=== PATIENT | female | born 1955 | race Caucasian/White ===

== ENCOUNTER 2021-04-02 22:41 | Emergency (ER) | payer OTHER ==
[2021-04-02 23:29] LABS: HEMOGLOBIN 11.2 gm/dl (12.3-15.3); RED BLOOD COUNT 3.53 M/UL (4.00-5.10); WHITE BLOOD COUNT 7.7 K/UL (4.5-11.0)
[2021-04-03 00:03] LABS: BUN/CREATININE RATIO 16 (0-10)
== END 2021-04-03 09:50 ==
LOC: ER1 22:41
PROVIDERS: Student in an Organized Health Care Education/Training Program
DX: U07.1 COVID-19 (principal); R41.0 Disorientation, unspecified; R09.02 Hypoxemia; I10 Essential (primary) hypertension; E11.9 Type 2 diabetes mellitus without complications; F17.210 Nicotine dependence, cigarettes, uncomplicated
CPT/HCPCS: 0240U; 36600; 51702; 70450; 70496; 70498; 71045; 80053; 80307; 82550; 82553; 82803; 83605; 83690; 83735; 83874; 83880; 84100; 84484; 85025; 86140; 87040; 93005; 94760; 96374; 96375; 96376; 99285; G0480; J0456; J3370; J3475; J3480; J7030; J7070; Q9967

== ENCOUNTER 2021-07-21 16:17 | Inpatient (IN) | payer OTHER ==
[~2021-07-21] VITALS: Ht 162.6 cm; Wt 53.5 kg
[2021-07-21 17:15] LABS: HEMOGLOBIN 10.4 gm/dl (12.3-15.3); RED BLOOD COUNT 3.24 M/UL (4.00-5.10); WHITE BLOOD COUNT 8.5 K/UL (4.5-11.0)
[2021-07-21 17:41] LABS: BUN/CREATININE RATIO 46 (0-10)
[2021-07-22 04:11] LABS: HEMOGLOBIN 10.9 gm/dl (12.3-15.3); RED BLOOD COUNT 3.39 M/UL (4.00-5.10)
[2021-07-22 04:22] LABS: WHITE BLOOD COUNT 11.8 K/UL (4.5-11.0)
[2021-07-22 04:38] LABS: BUN/CREATININE RATIO 34 (0-10)
[2021-07-22] MEDS ORDERED: PREGABALIN150 MG PO (10:04)
[2021-07-22] MEDS ORDERED: ACETAMINOPHEN-1 EAC1 PO (10:04)
[2021-07-22] MEDS ORDERED: TIAGABINE HCL2 MG PO (10:07)
[2021-07-22] MEDS ORDERED: SERTRALINE HCL100 MG PO (10:08)
[2021-07-22] MEDS ORDERED: BUPROPION XL150 MG PO (10:08)
[2021-07-22] MEDS ORDERED: ASPIRIN EC81 MG PO (10:09)
[2021-07-22] MEDS ORDERED: QUETIAPINE FUMA25 MG PO (10:11)
[2021-07-23 06:58] LABS: HEMOGLOBIN 10.2 gm/dl (12.3-15.3); RED BLOOD COUNT 3.33 M/UL (4.00-5.10)
[2021-07-23 07:01] LABS: WHITE BLOOD COUNT 15.7 K/UL (4.5-11.0)
[2021-07-23 07:15] LABS: BUN/CREATININE RATIO 15 (0-10)
[2021-07-23] MEDS ORDERED: LEVOFLOXACIN500 MG PO (15:53)
[2021-07-23] MEDS ORDERED: FLAGYL500 MG PO (15:53)
== END 2021-07-23 17:05 | disposition home or self-care (01) | DRG 871 ==
LOC: ER1 16:17 → CDU 17:54
PROVIDERS: Emergency Medicine; Internal Medicine; ADMIT Internal Medicine
PROC: 3E033XZ Introduction of Vasopressor into Peripheral Vein, Percutaneous Approach (ICD-10-PCS; principal; 2021-07-21)
DX: A41.9 Sepsis, unspecified organism (principal); R65.21 Severe sepsis with septic shock; A09 Infectious gastroenteritis and colitis, unspecified; Z20.822 Contact with and (suspected) exposure to COVID-19; E78.5 Hyperlipidemia, unspecified; F17.210 Nicotine dependence, cigarettes, uncomplicated; E86.0 Dehydration; D64.9 Anemia, unspecified; E11.9 Type 2 diabetes mellitus without complications; I10 Essential (primary) hypertension; Z86.73 Personal history of transient ischemic attack (TIA), and cerebral infarction without residual deficits; Z86.16 Personal history of COVID-19; Z79.4 Long term (current) use of insulin; Z79.01 Long term (current) use of anticoagulants; Z79.82 Long term (current) use of aspirin; Z90.710 Acquired absence of both cervix and uterus; Z83.3 Family history of diabetes mellitus; Z88.8 Allergy status to other drugs, medicaments and biological substances
CPT/HCPCS: 36600; 70450; 71045; 80048; 80053; 80307; 81001; 82436; 82550; 82553; 82803; 82962; 83605; 83690; 83735; 83874; 83880; 83935; 84133; 84300; 84484; 85025; 87040; 93005; 99285; J1650; J2543; J3370; J7030; U0002

== ENCOUNTER 2021-07-28 04:45 | Inpatient (IN) | payer OTHER ==
[~2021-07-28] VITALS: Ht 162.6 cm; Wt 52.6 kg
[~2021-07-28 04:45] MED LIST: ACETAMINOPHEN-1 EAC1 PO; ASPIRIN EC81 MG PO; BUPROPION XL150 MG PO; FLAGYL500 MG PO; LEVOFLOXACIN500 MG PO; METRONIDAZOLE500 MG PO; PREGABALIN150 MG PO; QUETIAPINE FUMA25 MG PO; SERTRALINE HCL100 MG PO; TIAGABINE HCL2 MG PO
[2021-07-28 05:35] LABS: HEMOGLOBIN 10.4 gm/dl (12.3-15.3); RED BLOOD COUNT 3.4 M/UL (4.00-5.10); WHITE BLOOD COUNT 10.2 K/UL (4.5-11.0)
[2021-07-28 06:38] LABS: BUN/CREATININE RATIO 5 (0-10)
[2021-07-28] MEDS ORDERED: BUSPIRONE HCL15 MG PO (12:10)
[2021-07-28] MEDS ORDERED: TYLENOL EXTRA500 MG PO (12:11)
[2021-07-29 07:40] LABS: HEMOGLOBIN 10.1 gm/dl (12.3-15.3); RED BLOOD COUNT 3.25 M/UL (4.00-5.10); WHITE BLOOD COUNT 10.9 K/UL (4.5-11.0)
[2021-07-29 07:59] LABS: BUN/CREATININE RATIO 4 (0-10)
[2021-07-31 07:48] LABS: HEMOGLOBIN 10.4 gm/dl (12.3-15.3); RED BLOOD COUNT 3.4 M/UL (4.00-5.10); WHITE BLOOD COUNT 8.9 K/UL (4.5-11.0)
[2021-07-31 08:14] LABS: BUN/CREATININE RATIO 4 (0-10)
[2021-08-01 08:11] LABS: RED BLOOD COUNT 3.64 M/UL (4.00-5.10); WHITE BLOOD COUNT 6.8 K/UL (4.5-11.0)
[2021-08-01 08:40] LABS: BUN/CREATININE RATIO 4 (0-10)
== END 2021-08-01 19:49 | disposition home or self-care (01) | DRG 394 ==
LOC: ER1 04:45 → CDU 10:29 → M/S 21:21
PROVIDERS: Physician Assistant; Student in an Organized Health Care Education/Training Program; ADMIT Internal Medicine
DX: K55.039 Acute (reversible) ischemia of large intestine, extent unspecified (principal); E87.2 Acidosis; Z20.822 Contact with and (suspected) exposure to COVID-19; K59.00 Constipation, unspecified; I25.10 Atherosclerotic heart disease of native coronary artery without angina pectoris; Z66 Do not resuscitate; K52.89 Other specified noninfective gastroenteritis and colitis; E11.65 Type 2 diabetes mellitus with hyperglycemia; F17.210 Nicotine dependence, cigarettes, uncomplicated; J44.9 Chronic obstructive pulmonary disease, unspecified; E83.42 Hypomagnesemia; E78.5 Hyperlipidemia, unspecified; E87.6 Hypokalemia; E11.51 Type 2 diabetes mellitus with diabetic peripheral angiopathy without gangrene; Z86.73 Personal history of transient ischemic attack (TIA), and cerebral infarction without residual deficits; Z87.01 Personal history of pneumonia (recurrent); Z90.49 Acquired absence of other specified parts of digestive tract; Z88.8 Allergy status to other drugs, medicaments and biological substances; Z91.041 Radiographic dye allergy status; Z82.3 Family history of stroke; Z80.1 Family history of malignant neoplasm of trachea, bronchus and lung; Z82.0 Family history of epilepsy and other diseases of the nervous system; Z79.82 Long term (current) use of aspirin
CPT/HCPCS: 36415; 36600; 71045; 73020; 73501; 80048; 80053; 80307; 81001; 82550; 82553; 82803; 82962; 83605; 83690; 83735; 83874; 84100; 84132; 84484; 85018; 85025; 85027; 86140; 86850; 86900; 86901; 93005; 96374; 96375; 96376; 99285; C9113; J2543; J3475; J3480; J7030; J7070; U0002